=== PATIENT | female | born 1965 | race Two or more races ===

== ENCOUNTER 2020-01-30 10:03 | Outpatient (CLI) | payer OTHER | END 2020-01-30 10:12 | disposition home or self-care (01) | LOC: MAMO-SONO 10:03 | PROVIDERS: ATTEND Surgery | DX: Z12.31 Encounter for screening mammogram for malignant neoplasm of breast (principal); N60.11 Diffuse cystic mastopathy of right breast; N60.12 Diffuse cystic mastopathy of left breast; Z80.3 Family history of malignant neoplasm of breast ==